=== PATIENT | female | born 1940 | race Caucasian/White ===

== ENCOUNTER → 2016-05-22 | Outpatient (CLI) | payer MEDICARE, BC | LOC: LAB 10:49 | DX: I10 Essential (primary) hypertension (principal) ==

== ENCOUNTER → 2016-05-30 | Outpatient (CLI) | payer MEDICARE, BC | LOC: LAB 10:40 | DX: Z00.00 Encounter for general adult medical examination without abnormal findings (principal); I10 Essential (primary) hypertension; J44.9 Chronic obstructive pulmonary disease, unspecified; R92.0 Mammographic microcalcification found on diagnostic imaging of breast; Z12.12 Encounter for screening for malignant neoplasm of rectum ==

== ENCOUNTER → 2017-05-14 | Outpatient (CLI) | payer MEDICARE, BC ==
[2017-05-15 16:16] LABS: ALBUMIN 3.8 g/dL (3.5-5.0); BUN/CREATININE RATIO 11.1 (6.0-26.0); CALCIUM 9.3 mg/dL (8.4-10.2); TOTAL BILIRUBIN 0.9 mg/dL (0.2-1.3)
== END ==
LOC: LAB 08:18
PROVIDERS: Family Medicine
DX: I10 Essential (primary) hypertension (principal); Z13.6 Encounter for screening for cardiovascular disorders; Z88.8 Allergy status to other drugs, medicaments and biological substances; Z91.018 Allergy to other foods

== ENCOUNTER → 2017-07-08 | Outpatient (CLI) | payer MEDICARE, BC ==
[~2017-07-08] VITALS: Ht 157.5 cm; Wt 71.8 kg
[~2017-07-08] MED LIST: ATROVENT HFA IH; LISINOPRIL20 MG PO; LOW DOSE ASPIRI81 M1 PO; METOPROLOL SUCC50 M1 PO; RT SPIRIVA INH18 MCG IH
[2017-07-08 12:05] VITALS: BP 177/91
[2017-07-08 12:07] LABS: BUN/CREATININE RATIO 10.6 (6.0-26.0); POTASSIUM 3.8 mmol/L (3.6-5.0)
[2017-07-08 12:17] LABS: URINE APPEARANCE CLEAR; URINE BILIRUBIN NEGATIVE (NEGATIVE); URINE BLOOD NEGATIVE (NEGATIVE); URINE COLOR YELLOW; URINE GLUCOSE NEGATIVE (NEGATIVE); URINE KETONE NEGATIVE (NEGATIVE); URINE LEUKOCYTE ESTERASE TRACE (NEGATIVE); URINE NITRATE NEGATIVE (NEGATIVE); URINE PROTEIN(semi-quant) NEGATIVE (NEGATIVE); URINE UROBILINOGEN NORMAL (NORMAL)
== END ==
LOC: AMSURD 11:31 → RAD 11:31
PROVIDERS: Family Medicine
DX: I10 Essential (primary) hypertension (principal); J44.9 Chronic obstructive pulmonary disease, unspecified; Z72.0 Tobacco use; R60.0 Localized edema; R09.89 Other specified symptoms and signs involving the circulatory and respiratory systems; R91.8 Other nonspecific abnormal finding of lung field

== ENCOUNTER → 2017-07-12 | Outpatient (CLI) | payer MEDICARE, BC ==
[2017-07-08 12:05] VITALS: BP 177/91
== END ==
LOC: RAD 09:46
DX: I28.8 Other diseases of pulmonary vessels (principal); R91.8 Other nonspecific abnormal finding of lung field; Z88.8 Allergy status to other drugs, medicaments and biological substances; Z91.041 Radiographic dye allergy status
CPT/HCPCS: Q9967

== ENCOUNTER → 2017-07-15 | Outpatient (CLI) | payer MEDICARE, BC ==
[2017-07-08 12:05] VITALS: BP 177/91
[2017-07-15 11:16] LABS: BUN/CREATININE RATIO 11.7 (6.0-26.0); CALCIUM 9.1 mg/dL (8.4-10.2); POTASSIUM 4.7 mmol/L (3.6-5.0)
== END ==
LOC: LAB 10:20
PROVIDERS: Family Medicine
DX: R60.0 Localized edema (principal)

== ENCOUNTER 2018-05-20 13:41 | Emergency (ER) | payer MEDICARE, BC ==
[~2018-05-20] VITALS: Ht 157.5 cm; Wt 75.9 kg
[2018-05-20 14:08] LABS: EOS % 0.4 % (1.0-5.0); HEMOGLOBIN 15.8 g/dL (12.5-16.0); LYMPH# 1.9 (1.50-4.00); MEAN CELL VOLUME 89 fl (78-100); MEAN CORPUSCULAR HEMOGLOBIN 28 pg (27-31); MEAN CORPUSCULAR HGB CONC 32 g/dL (33-37); MEAN PLATELET VOLUME 9.2 fl (7.4-10.4); MONO # 0.7 (0.20-0.80); NEU # 5.7 (1.40-6.50); PLATELET COUNT 245 K/mm3 (130-400); RED BLOOD COUNT 5.59 M/mm3 (4.10-5.30); RED CELL DISTRIBUTION WIDTH 14.9 % (11.5-14.5); WHITE BLOOD COUNT 8.4 K/mm3 (4.8-10.8)
[2018-05-20 14:25] LABS: ALBUMIN 3.7 g/dL (3.5-5.0); CALCIUM 8.7 mg/dL (8.4-10.2); POTASSIUM 4.2 mmol/L (3.6-5.0); TOTAL BILIRUBIN 0.7 mg/dL (0.2-1.3); TOTAL PROTEIN 6.6 g/dL (6.3-8.2)
[2018-05-20 14:39] LABS: TROPONIN-I < 0.03 ng/mL (0.00-0.06)
[2018-05-20 16:05] LABS: URINE APPEARANCE CLEAR; URINE BILIRUBIN NEGATIVE (NEGATIVE); URINE BLOOD TRACE (NEGATIVE); URINE COLOR YELLOW; URINE GLUCOSE NEGATIVE (NEGATIVE); URINE KETONE NEGATIVE (NEGATIVE); URINE LEUKOCYTE ESTERASE NEGATIVE (NEGATIVE); URINE NITRATE NEGATIVE (NEGATIVE); URINE PROTEIN(semi-quant) TRACE mg/dL (NEGATIVE); URINE UROBILINOGEN NORMAL (NORMAL)
[2018-05-20 16:06] LABS: URINE WBC 0-1 /hpf (0-3)
[2018-05-20 16:48] VITALS: BP 164/76
== END 2018-05-20 16:50 | disposition short-term general hospital (02) ==
LOC: ED 13:41
PROVIDERS: Nurse Practitioner Family
DX: I11.0 Hypertensive heart disease with heart failure (principal); I50.9 Heart failure, unspecified; I27.20 Pulmonary hypertension, unspecified; J44.9 Chronic obstructive pulmonary disease, unspecified; R09.02 Hypoxemia; E87.1 Hypo-osmolality and hyponatremia; I34.0 Nonrheumatic mitral (valve) insufficiency; M47.814 Spondylosis without myelopathy or radiculopathy, thoracic region; G89.29 Other chronic pain; F17.210 Nicotine dependence, cigarettes, uncomplicated; Z88.8 Allergy status to other drugs, medicaments and biological substances
CPT/HCPCS: J1940; J7030

== ENCOUNTER → 2018-06-03 | Outpatient (CLI) | payer MEDICARE, BC ==
[2018-05-20 16:48] VITALS: BP 164/76
[2018-06-03 08:46] LABS: ALT/SGPT 22 U/L (9-52); AST-SGOT 18 U/L (14-36); CALCIUM 8.9 mg/dL (8.4-10.2); GLUCOSE 90 mg/dL (65-105); POTASSIUM 4.1 mmol/L (3.6-5.0); SODIUM 132 mmol/L (137-145); TOTAL BILIRUBIN 0.8 mg/dL (0.2-1.3); TOTAL PROTEIN 5.4 g/dL (6.3-8.2)
[2018-06-03 09:32] LABS: CARBON DIOXIDE > 40 mmol/L (22-30)
== END ==
LOC: LAB 08:17
PROVIDERS: Family Medicine
DX: I11.0 Hypertensive heart disease with heart failure (principal); I50.9 Heart failure, unspecified; I05.2 Rheumatic mitral stenosis with insufficiency

== ENCOUNTER → 2018-06-25 | Outpatient (CLI) | payer MEDICARE, BC | LOC: LAB 14:54 | PROVIDERS: Family Medicine | DX: I50.9 Heart failure, unspecified (principal) ==

== ENCOUNTER 2018-08-29 10:00 | Outpatient (RCR) | payer MEDICARE, BC | END 2018-09-03 | disposition still patient (30) | LOC: CARDREHAB | DX: I09.81 Rheumatic heart failure (principal); I50.9 Heart failure, unspecified; I27.0 Primary pulmonary hypertension ==

== ENCOUNTER 2018-10-29 10:00 | Outpatient (RCR) | payer MEDICARE, BC | END 2018-10-29 11:00 | disposition home or self-care (01) | LOC: CARDREHAB 10:00 | DX: I27.89 Other specified pulmonary heart diseases (principal); I27.0 Primary pulmonary hypertension; I05.2 Rheumatic mitral stenosis with insufficiency; I50.9 Heart failure, unspecified; J44.9 Chronic obstructive pulmonary disease, unspecified ==

== ENCOUNTER 2019-01-22 13:27 | Inpatient (IN) | payer MEDICARE, BC ==
[~2019-01-22] VITALS: Ht 157.5 cm; Wt 78.6 kg
[~2019-01-22 13:27] MED LIST changes: +LISINOPRIL10 MG PO; -LISINOPRIL20 MG PO; -METOPROLOL SUCC50 M1 PO; +TOPROL-XL200 MG PO
[2019-01-22] MEDS ORDERED: ZETIA10 M1 PO (17:09)
[2019-01-22] MEDS ORDERED: ASPIRIN E.C. 8181 MG PO (17:09)
[2019-01-22] MEDS ORDERED: NORCO 325 MG-51 TA1 PO (17:10)
[2019-01-22] MEDS ORDERED: LASIX40 M1 PO (17:10)
[2019-01-22] MEDS ORDERED: POTASSIUM CH2 MEQ/ML PO (17:14)
[2019-01-22 17:22] VITALS: BP 155/75
[2019-01-22 17:22] LABS: HEMATOCRIT 37.2 % (37.0-47.0); MEAN PLATELET VOLUME 9.9 fl (7.4-10.4); RED BLOOD COUNT 4.07 M/mm3 (4.10-5.30); RED CELL DISTRIBUTION WIDTH 13.7 % (11.5-14.5); WHITE BLOOD COUNT 11.9 K/mm3 (4.8-10.8)
[2019-01-22 17:32] LABS: ALBUMIN 3.2 g/dL (3.4-4.8); POTASSIUM 5.1 mmol/L (3.5-5.1)
[2019-01-22 17:34] LABS: CALCIUM 9.2 mg/dL (8.3-10.5)
[2019-01-22 17:35] LABS: TOTAL PROTEIN 5.9 g/dL (6.2-8.1)
[2019-01-22 17:37] LABS: TOTAL BILIRUBIN 0.8 mg/dL (0.2-1.2)
[2019-01-22] MEDS ORDERED: AMIODARONE200 MG PO (18:13)
[2019-01-22] MEDS ORDERED: LASIX80 M1 PO (18:15)
[2019-01-22] MEDS ORDERED: COUMADIN 2MG2 MG/TAB PO (18:16)
[2019-01-22 22:58] LABS: URINE APPEARANCE CLEAR; URINE BILIRUBIN NEGATIVE (NEGATIVE); URINE BLOOD NEGATIVE (NEGATIVE); URINE COLOR YELLOW; URINE GLUCOSE NEGATIVE (NEGATIVE); URINE KETONE NEGATIVE (NEGATIVE); URINE LEUKOCYTE ESTERASE NEGATIVE (NEGATIVE); URINE NITRATE NEGATIVE (NEGATIVE); URINE PROTEIN(semi-quant) TRACE mg/dL (NEGATIVE); URINE UROBILINOGEN NORMAL (NORMAL); URINE WBC 0-1 /hpf (0-3)
[2019-01-23 06:29] VITALS: BP 111/67
[2019-01-23 19:10] VITALS: BP 127/81
[2019-01-23 20:06] LABS: PROTHROMBIN TIME 25.6 SECONDS (9.0-12.0)
[2019-01-24 06:24] VITALS: BP 113/85
[2019-01-24 11:29] LABS: CALCIUM 8.5 mg/dL (8.3-10.5)
[2019-01-24 18:59] VITALS: BP 132/78
[2019-01-25 06:25] VITALS: BP 110/66
[2019-01-25 17:55] VITALS: BP 150/74
[2019-01-26 06:23] LABS: HEMATOCRIT 39.1 % (37.0-47.0); HEMOGLOBIN 12.3 g/dL (12.5-16.0); MEAN CELL VOLUME 93 fl (78-100); MEAN CORPUSCULAR HEMOGLOBIN 29 pg (27-31); MEAN CORPUSCULAR HGB CONC 32 g/dL (33-37); MEAN PLATELET VOLUME 9.1 fl (7.4-10.4); PLATELET COUNT 388 K/mm3 (130-400); RED BLOOD COUNT 4.19 M/mm3 (4.10-5.30); RED CELL DISTRIBUTION WIDTH 13.4 % (11.5-14.5); WHITE BLOOD COUNT 12.9 K/mm3 (4.8-10.8)
[2019-01-26 06:32] VITALS: BP 120/71
[2019-01-26 06:50] LABS: POTASSIUM 4.5 mmol/L (3.5-5.1)
[2019-01-26 06:52] LABS: CALCIUM 8.8 mg/dL (8.3-10.5)
[2019-01-26 07:05] LABS: PROTHROMBIN TIME 24.2 SECONDS (9.0-12.0)
[2019-01-26 07:27] LABS: LYMPHOCYTE 11 % (20-51); MONOCYTE 5 % (3-10); NEUTROPHILS 83 % (42-75)
[2019-01-26 13:23] VITALS: BP 135/82
[2019-01-26] MEDS ORDERED: DILTIAZEM HCL30 M1 PO (13:39)
[2019-01-26] MEDS ORDERED: ALDACTONE 25MG25 MG PO (13:39)
[2019-01-26] MEDS ORDERED: LASIX80 M1 PO (13:40)
== END 2019-01-26 14:58 | disposition short-term general hospital (02) | DRG 948 ==
LOC: MED/SURG 13:27
PROVIDERS: Family Medicine; ADMIT Family Medicine
DX: R53.81 Other malaise (principal); E87.1 Hypo-osmolality and hyponatremia; J44.9 Chronic obstructive pulmonary disease, unspecified; I25.10 Atherosclerotic heart disease of native coronary artery without angina pectoris; I73.9 Peripheral vascular disease, unspecified; I48.0 Paroxysmal atrial fibrillation; M19.90 Unspecified osteoarthritis, unspecified site; D64.9 Anemia, unspecified; Z79.82 Long term (current) use of aspirin; Z95.2 Presence of prosthetic heart valve; Z95.1 Presence of aortocoronary bypass graft
CPT/HCPCS: J1940

== ENCOUNTER 2019-01-29 13:19 | Inpatient (IN) | payer MEDICARE, BC ==
[~2019-01-29] VITALS: Ht 157.5 cm; Wt 72.8 kg
[~2019-01-29 13:19] MED LIST changes: +ALDACTONE 25MG25 MG PO; +AMIODARONE200 MG PO; +ASPIRIN E.C. 8181 MG PO; +COUMADIN 2MG2 MG/TAB PO; +DILTIAZEM HCL30 M1 PO; +LASIX40 M1 PO; +LASIX80 M1 PO; +NORCO 325 MG-51 TA1 PO; +POTASSIUM CH2 MEQ/ML PO; +ZETIA10 M1 PO
[2019-01-29] MEDS ORDERED: DILTIAZEM HCL60 MG PO (16:34)
[2019-01-29] MEDS ORDERED: TORSEMIDE20 M1 PO (16:37)
[2019-01-29] MEDS ORDERED: K-TAB20 MEQ PO (17:55)
[2019-01-29 18:00] VITALS: BP 127/83
[2019-01-29] MEDS ORDERED: WARFARIN SOD2 MG PO (18:03)
[2019-01-29 19:18] VITALS: BP 127/83
[2019-01-29 19:28] VITALS: BP 127/83
[2019-01-30 06:23] VITALS: BP 121/81
[2019-01-30 07:00] LABS: CALCIUM 8.6 mg/dL (8.3-10.5)
[2019-01-30 07:19] LABS: PROTHROMBIN TIME 26.2 SECONDS (9.0-12.0)
[2019-01-30 08:23] VITALS: BP 114/64
[2019-01-30 09:25] LABS: EOS # 0.2 (0.04-0.40); EOS % 2.2 % (1.0-5.0); HEMATOCRIT 41.1 % (37.0-47.0); HEMOGLOBIN 12.9 g/dL (12.5-16.0); LYMPH# 1.9 (1.50-4.00); MEAN CELL VOLUME 93 fl (78-100); MEAN CORPUSCULAR HEMOGLOBIN 29 pg (27-31); MEAN CORPUSCULAR HGB CONC 31 g/dL (33-37); MEAN PLATELET VOLUME 9.2 fl (7.4-10.4); MONO # 0.8 (0.20-0.80); NEU # 7.5 (1.40-6.50); PLATELET COUNT 389 K/mm3 (130-400); RED BLOOD COUNT 4.42 M/mm3 (4.10-5.30); RED CELL DISTRIBUTION WIDTH 13.7 % (11.5-14.5); WHITE BLOOD COUNT 10.5 K/mm3 (4.8-10.8)
[2019-01-30 15:09] LABS: URINE APPEARANCE CLEAR; URINE BILIRUBIN NEGATIVE (NEGATIVE); URINE BLOOD TRACE (NEGATIVE); URINE COLOR YELLOE; URINE GLUCOSE NEGATIVE (NEGATIVE); URINE KETONE NEGATIVE (NEGATIVE); URINE LEUKOCYTE ESTERASE NEGATIVE (NEGATIVE); URINE NITRATE NEGATIVE (NEGATIVE); URINE PROTEIN(semi-quant) TRACE mg/dL (NEGATIVE); URINE UROBILINOGEN NORMAL (NORMAL); URINE WBC 0-1 /hpf (0-3)
[2019-01-30 18:09] VITALS: BP 96/65
[2019-01-31 06:21] VITALS: BP 134/76
[2019-01-31 09:31] LABS: PROTHROMBIN TIME 48.4 SECONDS (9.0-12.0)
[2019-01-31 10:27] VITALS: BP 126/77
[2019-01-31 11:59] LABS: CALCIUM 8.9 mg/dL (8.3-10.5)
[2019-01-31 13:49] VITALS: BP 102/46
[2019-01-31 17:11] VITALS: BP 129/68
[2019-01-31 18:42] VITALS: BP 124/77
[2019-02-01 06:14] VITALS: BP 109/68
[2019-02-01 09:02] LABS: PROTHROMBIN TIME 65.8 SECONDS (9.0-12.0)
[2019-02-01 10:58] VITALS: BP 128/74
[2019-02-01 14:14] VITALS: BP 120/62
[2019-02-01 18:53] VITALS: BP 114/66
[2019-02-02 06:19] VITALS: BP 91/64
[2019-02-02 07:34] LABS: PROTHROMBIN TIME 49.1 SECONDS (9.0-12.0)
[2019-02-02 07:49] VITALS: BP 131/70
[2019-02-02 09:39] LABS: HEMOGLOBIN 11.8 g/dL (12.5-16.0); MEAN CELL VOLUME 93 fl (78-100); MEAN CORPUSCULAR HEMOGLOBIN 29 pg (27-31); MEAN CORPUSCULAR HGB CONC 31 g/dL (33-37); MEAN PLATELET VOLUME 9.6 fl (7.4-10.4); PLATELET COUNT 283 K/mm3 (130-400); RED BLOOD COUNT 4.11 M/mm3 (4.10-5.30); RED CELL DISTRIBUTION WIDTH 13.7 % (11.5-14.5); WHITE BLOOD COUNT 12.9 K/mm3 (4.8-10.8)
[2019-02-02 09:40] LABS: POTASSIUM 3.9 mmol/L (3.5-5.1)
[2019-02-02 09:41] LABS: CALCIUM 8.9 mg/dL (8.3-10.5)
[2019-02-02 11:16] LABS: LYMPHOCYTE 11 % (20-51); MONOCYTE 10 % (3-10); NEUTROPHILS 79 % (42-75)
[2019-02-02 18:00] VITALS: BP 98/59
[2019-02-03 06:24] VITALS: BP 112/61
[2019-02-03 07:23] LABS: EOS # 0.1 (0.04-0.40); EOS % 0.8 % (1.0-5.0); HEMATOCRIT 36.8 % (37.0-47.0); HEMOGLOBIN 11.5 g/dL (12.5-16.0); LYMPH# 2.4 (1.50-4.00); MEAN CELL VOLUME 92 fl (78-100); MEAN CORPUSCULAR HEMOGLOBIN 29 pg (27-31); MEAN CORPUSCULAR HGB CONC 31 g/dL (33-37); MEAN PLATELET VOLUME 9.9 fl (7.4-10.4); MONO # 1.2 (0.20-0.80); PLATELET COUNT 282 K/mm3 (130-400); RED CELL DISTRIBUTION WIDTH 13.8 % (11.5-14.5); WHITE BLOOD COUNT 15.3 K/mm3 (4.8-10.8)
[2019-02-03 07:24] LABS: NEU # 11.5 (1.40-6.50)
[2019-02-03 07:25] LABS: PROTHROMBIN TIME 37.4 SECONDS (9.0-12.0)
[2019-02-03 15:44] LABS: POTASSIUM 3.9 mmol/L (3.5-5.1)
[2019-02-03 15:45] LABS: CALCIUM 8.6 mg/dL (8.3-10.5)
[2019-02-03 15:51] VITALS: BP 96/61
[2019-02-03 18:55] VITALS: BP 112/64
[2019-02-04 06:11] LABS: HEMATOCRIT 36.7 % (37.0-47.0); HEMOGLOBIN 11.6 g/dL (12.5-16.0); MEAN CELL VOLUME 92 fl (78-100); MEAN CORPUSCULAR HEMOGLOBIN 29 pg (27-31); MEAN CORPUSCULAR HGB CONC 32 g/dL (33-37); MEAN PLATELET VOLUME 9.5 fl (7.4-10.4); PLATELET COUNT 261 K/mm3 (130-400); RED BLOOD COUNT 3.99 M/mm3 (4.10-5.30); RED CELL DISTRIBUTION WIDTH 13.6 % (11.5-14.5); WHITE BLOOD COUNT 13.3 K/mm3 (4.8-10.8)
[2019-02-04 06:19] LABS: POTASSIUM 3.9 mmol/L (3.5-5.1)
[2019-02-04 06:20] LABS: CALCIUM 8.8 mg/dL (8.3-10.5)
[2019-02-04 06:27] VITALS: BP 115/63
[2019-02-04 06:27] LABS: PROTHROMBIN TIME 11.7 SECONDS (9.0-12.0)
[2019-02-04 06:32] LABS: BAND 2 % (0-10); LYMPHOCYTE 7 % (20-51); NEUTROPHILS 82 % (42-75)
[2019-02-04 06:33] LABS: HYPOCHROMIA 1+; MONOCYTE 5 % (3-10); OVALOCYTES 1+
== END 2019-02-04 12:38 | disposition short-term general hospital (02) | DRG 947 ==
LOC: MED/SURG 13:19
PROVIDERS: Family Medicine; Nurse Practitioner Primary Care; ADMIT Nurse Practitioner Family
DX: R53.81 Other malaise (principal); J18.8 Other pneumonia, unspecified organism; J91.8 Pleural effusion in other conditions classified elsewhere; J44.9 Chronic obstructive pulmonary disease, unspecified; Z99.81 Dependence on supplemental oxygen; I48.0 Paroxysmal atrial fibrillation; Z79.01 Long term (current) use of anticoagulants; I50.9 Heart failure, unspecified; I11.0 Hypertensive heart disease with heart failure; R06.03 Acute respiratory distress
CPT/HCPCS: J1940; J2930

== ENCOUNTER 2019-02-16 15:13 | Inpatient (IN) | payer MEDICARE, BC ==
[~2019-02-16] VITALS: Ht 157.5 cm; Wt 64.5 kg
[~2019-02-16 15:13] MED LIST changes: +DILTIAZEM HCL60 MG PO; +K-TAB20 MEQ PO; +TORSEMIDE20 M1 PO; +WARFARIN SOD2 MG PO
[2019-02-16 16:42] VITALS: BP 143/87
[2019-02-16] MEDS ORDERED: LASIX40 M1 PO (17:17)
[2019-02-16] MEDS ORDERED: CARDIZEM CD 24240 MG PO (17:17)
[2019-02-16] MEDS ORDERED: COLCRYS0.6 MG PO (17:18)
[2019-02-16] MEDS ORDERED: PROTONIX TR40 M1 PO (17:58)
[2019-02-16] MEDS ORDERED: TOPROL XL100 MG PO (18:02)
[2019-02-16 18:22] VITALS: BP 143/87
[2019-02-16] MEDS ORDERED: COUMADIN 5MG5 MG/TAB PO (20:08)
[2019-02-16 20:43] LABS: HEMATOCRIT 38.1 % (37.0-47.0); HEMOGLOBIN 12.2 g/dL (12.5-16.0); MEAN CELL VOLUME 87 fl (78-100); MEAN CORPUSCULAR HEMOGLOBIN 28 pg (27-31); MEAN CORPUSCULAR HGB CONC 32 g/dL (33-37); MEAN PLATELET VOLUME 11.2 fl (7.4-10.4); PLATELET COUNT 155 K/mm3 (130-400); RED BLOOD COUNT 4.38 M/mm3 (4.10-5.30); RED CELL DISTRIBUTION WIDTH 13.9 % (11.5-14.5); WHITE BLOOD COUNT 9.9 K/mm3 (4.8-10.8)
[2019-02-16 20:53] LABS: ALBUMIN 2.6 g/dL (3.4-4.8); POTASSIUM 3.3 mmol/L (3.5-5.1)
[2019-02-16 20:56] LABS: TOTAL PROTEIN 4.8 g/dL (6.2-8.1)
[2019-02-16 20:58] LABS: TOTAL BILIRUBIN 0.4 mg/dL (0.2-1.2)
[2019-02-16 21:31] LABS: BAND 2 % (0-10); LYMPHOCYTE 10 % (20-51); MONOCYTE 5 % (3-10); NEUTROPHILS 80 % (42-75)
[2019-02-17 05:53] VITALS: BP 95/62
[2019-02-17 08:35] LABS: PROTHROMBIN TIME 26.4 SECONDS (9.0-12.0)
[2019-02-17 15:39] LABS: PROTHROMBIN TIME 24.1 SECONDS (9.0-12.0)
[2019-02-17 19:20] VITALS: BP 95/61
[2019-02-18 06:17] VITALS: BP 104/66
[2019-02-18 18:34] VITALS: BP 124/61
[2019-02-18 20:40] VITALS: BP 109/68
[2019-02-19 06:01] VITALS: BP 97/48
[2019-02-19 09:54] LABS: HEMATOCRIT 37.9 % (37.0-47.0); HEMOGLOBIN 12.2 g/dL (12.5-16.0); MEAN CELL VOLUME 87 fl (78-100); MEAN CORPUSCULAR HEMOGLOBIN 28 pg (27-31); MEAN CORPUSCULAR HGB CONC 32 g/dL (33-37); MEAN PLATELET VOLUME 11.5 fl (7.4-10.4); PLATELET COUNT 229 K/mm3 (130-400); RED BLOOD COUNT 4.34 M/mm3 (4.10-5.30); RED CELL DISTRIBUTION WIDTH 14.1 % (11.5-14.5); WHITE BLOOD COUNT 9.6 K/mm3 (4.8-10.8)
[2019-02-19 09:55] LABS: CALCIUM 8.2 mg/dL (8.3-10.5)
[2019-02-19 10:17] LABS: POTASSIUM 2.9 mmol/L (3.5-5.1)
[2019-02-19 10:23] LABS: LYMPHOCYTE 13 % (20-51); MONOCYTE 6 % (3-10); NEUTROPHILS 79 % (42-75)
[2019-02-19 10:36] LABS: PROTHROMBIN TIME 41.6 SECONDS (9.0-12.0)
[2019-02-19 18:31] VITALS: BP 111/66
[2019-02-20 05:43] VITALS: BP 95/56
[2019-02-20 07:22] LABS: PROTHROMBIN TIME 35.7 SECONDS (9.0-12.0)
[2019-02-20 07:30] LABS: CALCIUM 7.9 mg/dL (8.3-10.5)
[2019-02-20 19:08] VITALS: BP 95/60
[2019-02-21 06:05] VITALS: BP 91/51
[2019-02-21 08:11] LABS: POTASSIUM 3.3 mmol/L (3.5-5.1)
[2019-02-21 08:13] LABS: CALCIUM 8.2 mg/dL (8.3-10.5)
[2019-02-21 08:24] LABS: PROTHROMBIN TIME 29.3 SECONDS (9.0-12.0)
[2019-02-21 18:09] VITALS: BP 103/68
[2019-02-22 06:19] VITALS: BP 90/58
[2019-02-22 14:59] VITALS: BP 81/53
[2019-02-22 15:50] LABS: POTASSIUM 3.5 mmol/L (3.5-5.1)
[2019-02-22 16:28] VITALS: BP 93/56
[2019-02-22 18:23] VITALS: BP 103/68
[2019-02-23 05:50] VITALS: BP 95/59
[2019-02-23 07:20] LABS: POTASSIUM 3.3 mmol/L (3.5-5.1)
[2019-02-23 07:21] LABS: CALCIUM 7.7 mg/dL (8.3-10.5)
[2019-02-23 07:29] LABS: PROTHROMBIN TIME 20.2 SECONDS (9.0-12.0)
[2019-02-23 15:00] VITALS: BP 86/50
[2019-02-23 15:10] VITALS: BP 82/44
[2019-02-23 18:48] VITALS: BP 90/59
[2019-02-24 05:22] VITALS: BP 114/71
[2019-02-24 18:00] VITALS: BP 116/71
[2019-02-25 06:09] VITALS: BP 106/66
[2019-02-25 13:37] LABS: POTASSIUM 3.7 mmol/L (3.5-5.1); PROTHROMBIN TIME 18.8 SECONDS (9.0-12.0)
[2019-02-25 13:38] LABS: CALCIUM 7.8 mg/dL (8.3-10.5)
[2019-02-25 18:00] VITALS: BP 89/43
[2019-02-26 06:02] VITALS: BP 93/57
[2019-02-26] MEDS ORDERED: COUMADIN 2MG2 MG/TAB PO (08:38)
[2019-02-26] MEDS ORDERED: CARDIZEM CD180 M1 PO (08:40)
[2019-02-26] MEDS ORDERED: LASIX40 M1 PO (08:42)
[2019-02-26] MEDS ORDERED: IMODIUM 2MG CAPS2 MG PO (08:42)
[2019-02-26] MEDS ORDERED: TOPROL XL 25MG25 MG PO (08:43)
[2019-03-03] MEDS ORDERED: METOPROLOL SUCC25 M1 PO (11:53)
== END 2019-02-26 10:03 | disposition home health service (06) | DRG 948 ==
LOC: MED/SURG 15:13
PROVIDERS: Family Medicine; ADMIT Nurse Practitioner Primary Care
DX: R53.81 Other malaise (principal); I97.130 Postprocedural heart failure following cardiac surgery; Z86.711 Personal history of pulmonary embolism; Z79.01 Long term (current) use of anticoagulants; Z99.81 Dependence on supplemental oxygen; Z95.1 Presence of aortocoronary bypass graft; I48.91 Unspecified atrial fibrillation; J44.9 Chronic obstructive pulmonary disease, unspecified; R19.7 Diarrhea, unspecified; I11.0 Hypertensive heart disease with heart failure; I50.9 Heart failure, unspecified; K21.9 Gastro-esophageal reflux disease without esophagitis; I25.10 Atherosclerotic heart disease of native coronary artery without angina pectoris

== ENCOUNTER → 2019-02-27 | Outpatient (CLI) | payer MEDICARE, BC ==
[2019-02-26 06:02] VITALS: BP 93/57
[~2019-02-27] MED LIST changes: +CARDIZEM CD 24240 MG PO; +CARDIZEM CD180 M1 PO; +COLCRYS0.6 MG PO; +COUMADIN 5MG5 MG/TAB PO; +IMODIUM 2MG CAPS2 MG PO; +METOPROLOL SUCC25 M1 PO; +PROTONIX TR40 M1 PO; +TOPROL XL 25MG25 MG PO; +TOPROL XL100 MG PO
[2019-02-27 11:31] LABS: PROTHROMBIN TIME 22.5 SECONDS (9.0-12.0)
== END ==
LOC: LAB 09:53
PROVIDERS: Family Medicine
DX: I26.99 Other pulmonary embolism without acute cor pulmonale (principal)

== ENCOUNTER 2019-03-02 14:00 | Emergency (ER) | payer MEDICARE, BC ==
[~2019-03-02] VITALS: Wt 68.6 kg
[~2019-03-02 14:00] MED LIST changes: -METOPROLOL SUCC25 M1 PO
[2019-03-02 18:30] VITALS: BP 133/64
--- NOTE | 2019-03-03 11:46 | NUR ---
Provider reqested information on [facility], message left w/ Elis LEAL, on 03-02-19, who calls back today w/ [facility] phone # [phone] stating they are currently down 2 providers and appointments may be out for some time. Elisha Costa RN DON of [facility] with which pt is currently in an episode of HH is notified and will f/u w/ pt and her PCP.
[2019-03-03] MEDS ORDERED: METOPROLOL SUCC25 M1 PO (11:53)
== END 2019-03-02 18:25 | disposition home or self-care (01) ==
LOC: ED 14:00
DX: I95.1 Orthostatic hypotension (principal); E87.1 Hypo-osmolality and hyponatremia; I48.91 Unspecified atrial fibrillation; I50.9 Heart failure, unspecified; Z95.2 Presence of prosthetic heart valve; Z79.01 Long term (current) use of anticoagulants
CPT/HCPCS: J7030

== ENCOUNTER → 2019-03-02 | Outpatient (CLI) | payer MEDICARE, BC ==
[2019-03-02 11:23] LABS: HEMATOCRIT 36.4 % (37.0-47.0); HEMOGLOBIN 12.2 g/dL (12.5-16.0); MEAN CELL VOLUME 84 fl (78-100); MEAN CORPUSCULAR HEMOGLOBIN 28 pg (27-31); MEAN CORPUSCULAR HGB CONC 34 g/dL (33-37); MEAN PLATELET VOLUME 10.4 fl (7.4-10.4); PLATELET COUNT 215 K/mm3 (130-400); RED BLOOD COUNT 4.35 M/mm3 (4.10-5.30); RED CELL DISTRIBUTION WIDTH 14.4 % (11.5-14.5)
[2019-03-02 11:36] LABS: POTASSIUM 3.9 mmol/L (3.5-5.1)
[2019-03-02 11:37] LABS: BAND 3 % (0-10); CALCIUM 7.5 mg/dL (8.3-10.5); LYMPHOCYTE 20 % (20-51); MONOCYTE 11 % (3-10); NEUTROPHILS 64 % (42-75)
[2019-03-02 13:23] VITALS: BP 143/88
--- NOTE | 2019-03-02 13:50 | NUR ---
ORTHOSTATIC BP TAKEN. DIZZY AT ALL TIMES. RESP LABORED AND SHALLOW EVEN AT REST. WHILE STANDING FOR BP, PATIENT REPORTED FEELING WEAK; INCREASED RESP RATE NOTED. FOUL SMELLING LOOSE STOOL. MINIMAL ASSIST WITH ADL'S AND AMBULATION. APPEARS TIRED. SKIN A YELLOW HUE WITH PALLOR TO NOSE/MOUTH TRIANGLE. DISCUSS PATIENT CONDITION WITH DR ORTIZ, WHO ORDERS FOR PATIENT TO BE EVALUATED IN THE ER.
[2019-03-02 14:08] VITALS: BP 143/88
--- NOTE | 2019-03-02 14:18 | NUR ---
MICAH, , NOTIFIED OF TRANSITION TO ER.
== END ==
LOC: AMSURD 11:12 → LAB 11:12
PROVIDERS: Family Medicine
DX: I48.91 Unspecified atrial fibrillation (principal); I95.9 Hypotension, unspecified

== ENCOUNTER → 2019-03-13 | Outpatient (CLI) | payer MEDICARE, BC ==
[2019-03-02 18:30] VITALS: BP 133/64
[~2019-03-13] MED LIST changes: +METOPROLOL SUCC25 M1 PO
[2019-03-13 15:25] LABS: POTASSIUM 3.9 mmol/L (3.5-5.1)
[2019-03-13 15:26] LABS: CALCIUM 8.1 mg/dL (8.3-10.5)
== END ==
LOC: LAB 10:50
PROVIDERS: Family Medicine
DX: I10 Essential (primary) hypertension (principal); R19.7 Diarrhea, unspecified

== ENCOUNTER → 2019-04-09 | Outpatient (CLI) | payer MEDICARE, BC ==
[2019-04-09 14:33] LABS: CALCIUM 8.4 mg/dL (8.3-10.5)
== END ==
LOC: LAB 14:19
PROVIDERS: Family Medicine
DX: I50.9 Heart failure, unspecified (principal)

== ENCOUNTER → 2019-04-16 | Outpatient (CLI) | payer MEDICARE, BC ==
[2019-04-16 10:55] LABS: CALCIUM 8.8 mg/dL (8.3-10.5)
== END ==
LOC: LAB 10:31
PROVIDERS: Family Medicine
DX: I50.9 Heart failure, unspecified (principal)

== ENCOUNTER 2019-04-17 13:56 | Emergency (ER) | payer MEDICARE, BC ==
[~2019-04-17] VITALS: Ht 160 cm; Wt 60.0 kg
[2019-04-17 15:11] LABS: EOS % 0.4 % (1.0-5.0); HEMATOCRIT 41.1 % (37.0-47.0); HEMOGLOBIN 13.1 g/dL (12.5-16.0); LYMPH# 2.8 (1.50-4.00); MEAN CELL VOLUME 85 fl (78-100); MEAN CORPUSCULAR HEMOGLOBIN 27 pg (27-31); MEAN CORPUSCULAR HGB CONC 32 g/dL (33-37); NEU # 5.3 (1.40-6.50); PLATELET COUNT 354 K/mm3 (130-400); RED BLOOD COUNT 4.83 M/mm3 (4.10-5.30); WHITE BLOOD COUNT 9.1 K/mm3 (4.8-10.8)
[2019-04-17 15:14] LABS: RED CELL DISTRIBUTION WIDTH 18.3 % (11.5-14.5)
[2019-04-17 15:21] LABS: ALBUMIN 2.9 g/dL (3.4-4.8); POTASSIUM 3.2 mmol/L (3.5-5.1); SODIUM 132 mmol/L (136-145)
[2019-04-17 15:23] LABS: CALCIUM 9.1 mg/dL (8.3-10.5)
[2019-04-17 15:24] LABS: GLUCOSE 110 mg/dL (65-105); TOTAL PROTEIN 6.5 g/dL (6.2-8.1)
[2019-04-17 15:25] LABS: CARBON DIOXIDE 37 mmol/L (23-31)
[2019-04-17 15:26] LABS: TOTAL BILIRUBIN 0.5 mg/dL (0.2-1.2)
[2019-04-17 15:29] LABS: AST-SGOT 24 U/L (5-34)
[2019-04-17 15:30] LABS: ALT/SGPT 22 U/L (0-55)
[2019-04-17 15:36] LABS: TROPONIN-I < 0.03 ng/mL (<0.030)
[2019-04-17 16:31] LABS: URINE APPEARANCE HAZY; URINE BILIRUBIN NEGATIVE (NEGATIVE); URINE BLOOD TRACE (NEGATIVE); URINE COLOR YELLOW; URINE GLUCOSE NEGATIVE (NEGATIVE); URINE KETONE NEGATIVE (NEGATIVE); URINE LEUKOCYTE ESTERASE 2+ (NEGATIVE); URINE NITRATE NEGATIVE (NEGATIVE); URINE PROTEIN(semi-quant) 1+ mg/dL (NEGATIVE); URINE UROBILINOGEN NORMAL (NORMAL); URINE WBC 31-50 /hpf (0-3)
[2019-04-17 17:32] LABS: PARTIAL THROMBOPLASTIN TIME 26.4 SECONDS (21.0-32.0); PROTHROMBIN TIME 20.1 SECONDS (9.0-12.0)
[2019-04-17 18:37] VITALS: BP 121/49
== END 2019-04-17 19:12 | disposition short-term general hospital (02) ==
LOC: ED 13:56
PROVIDERS: Nurse Practitioner
DX: I95.1 Orthostatic hypotension (principal); I25.10 Atherosclerotic heart disease of native coronary artery without angina pectoris; I11.0 Hypertensive heart disease with heart failure; I50.9 Heart failure, unspecified; N17.9 Acute kidney failure, unspecified; J44.9 Chronic obstructive pulmonary disease, unspecified; I48.91 Unspecified atrial fibrillation; Z79.01 Long term (current) use of anticoagulants; Z95.5 Presence of coronary angioplasty implant and graft; Z79.82 Long term (current) use of aspirin
CPT/HCPCS: J3480; J7030

== ENCOUNTER → 2019-06-22 | Outpatient (CLI) | payer MEDICARE, BC ==
[2019-06-22 16:23] LABS: POTASSIUM 4.5 mmol/L (3.5-5.1)
[2019-06-22 16:24] LABS: CALCIUM 9.3 mg/dL (8.3-10.5)
== END ==
LOC: LAB 15:59
DX: R60.0 Localized edema (principal); E87.6 Hypokalemia; Z79.899 Other long term (current) drug therapy

== ENCOUNTER 2019-07-20 11:00 | Outpatient (RCR) | payer MEDICARE, BC | END 2019-09-27 | disposition still patient (30) | LOC: CARDREHAB | DX: Z48.812 Encounter for surgical aftercare following surgery on the circulatory system (principal); Z95.2 Presence of prosthetic heart valve ==

== ENCOUNTER → 2019-09-18 | Outpatient (CLI) | payer MEDICARE, BC ==
[2019-09-18 10:21] LABS: POTASSIUM 4.3 mmol/L (3.5-5.1)
[2019-09-18 10:22] LABS: CALCIUM 9.4 mg/dL (8.3-10.5)
== END ==
LOC: LAB 09:57
DX: Z79.899 Other long term (current) drug therapy (principal); I48.19 Other persistent atrial fibrillation; E87.6 Hypokalemia; R60.0 Localized edema

== ENCOUNTER → 2020-05-26 | Outpatient (CLI) | payer MEDICARE, BC ==
[2020-05-26 13:57] LABS: POTASSIUM 4.4 mmol/L (3.5-5.1)
[2020-05-26 13:59] LABS: CALCIUM 9.1 mg/dL (8.3-10.5)
== END ==
LOC: LAB 13:32
PROVIDERS: Internal Medicine Clinical Cardiac Electrophysiology
DX: I34.0 Nonrheumatic mitral (valve) insufficiency (principal); I25.10 Atherosclerotic heart disease of native coronary artery without angina pectoris; I48.0 Paroxysmal atrial fibrillation

== ENCOUNTER → 2020-06-01 | Outpatient (CLI) | payer MEDICARE, BC ==
[2020-06-01 11:49] LABS: POTASSIUM 4.3 mmol/L (3.5-5.1)
[2020-06-01 11:50] LABS: CALCIUM 9.1 mg/dL (8.3-10.5)
== END ==
LOC: LAB 11:22
PROVIDERS: Internal Medicine Clinical Cardiac Electrophysiology
DX: I48.19 Other persistent atrial fibrillation (principal)

== ENCOUNTER 2020-07-21 14:13 | Emergency (ER) | payer MEDICARE, BC ==
[2020-07-21] MEDS ORDERED: FLUTICASONE-SA1 EAC3 IH (14:32)
[2020-07-21] MEDS ORDERED: ALDACTONE 25MG25 MG PO (14:32)
[2020-07-21] MEDS ORDERED: TAZTIA XT120 MG PO (14:33)
[2020-07-21 18:07] VITALS: BP 146/82
== END 2020-07-21 18:06 | disposition home or self-care (01) ==
LOC: ED 14:13
DX: S52.601A Unspecified fracture of lower end of right ulna, initial encounter for closed fracture (principal); S61.216A Laceration without foreign body of right little finger without damage to nail, initial encounter; I10 Essential (primary) hypertension; J44.9 Chronic obstructive pulmonary disease, unspecified; I11.0 Hypertensive heart disease with heart failure; Z95.9 Presence of cardiac and vascular implant and graft, unspecified; Z79.01 Long term (current) use of anticoagulants; Z79.82 Long term (current) use of aspirin; W01.0XXA Fall on same level from slipping, tripping and stumbling without subsequent striking against object, initial encounter; Y92.009 Unspecified place in unspecified non-institutional (private) residence as the place of occurrence of the external cause

== ENCOUNTER → 2020-11-30 | Day surgery (SDC) | payer MEDICARE, BC ==
[~2020-11-30] MED LIST changes: +FLUTICASONE-SA1 EAC3 IH; +TAZTIA XT120 MG PO
== END | disposition home or self-care (01) ==
LOC: MSO 09:44
DX: H25.813 Combined forms of age-related cataract, bilateral (principal); J44.9 Chronic obstructive pulmonary disease, unspecified; I50.9 Heart failure, unspecified; I48.91 Unspecified atrial fibrillation; I05.9 Rheumatic mitral valve disease, unspecified; Z79.899 Other long term (current) drug therapy; Z79.01 Long term (current) use of anticoagulants; Z87.891 Personal history of nicotine dependence; Z79.82 Long term (current) use of aspirin; Z88.3 Allergy status to other anti-infective agents; Z79.51 Long term (current) use of inhaled steroids
CPT/HCPCS: 00142; J0171; J2250; V2632

== ENCOUNTER → 2020-12-19 | Outpatient (CLI) | payer MEDICARE, BC ==
[2020-12-19 08:40] LABS: ALBUMIN 3.9 g/dL (3.4-4.8); POTASSIUM 4.4 mmol/L (3.5-5.1)
[2020-12-19 08:41] LABS: CALCIUM 9.5 mg/dL (8.3-10.5)
[2020-12-19 08:42] LABS: TOTAL PROTEIN 7.3 g/dL (6.2-8.1)
[2020-12-19 08:44] LABS: TOTAL BILIRUBIN 0.5 mg/dL (0.2-1.2)
== END ==
LOC: LAB 08:13
PROVIDERS: Family Medicine
DX: Z00.00 Encounter for general adult medical examination without abnormal findings (principal); Z86.79 Personal history of other diseases of the circulatory system

== ENCOUNTER → 2020-12-28 | Day surgery (SDC) | payer MEDICARE, BC | LOC: MSO 07:19 | DX: H25.811 Combined forms of age-related cataract, right eye (principal); J44.9 Chronic obstructive pulmonary disease, unspecified; I38 Endocarditis, valve unspecified; I50.9 Heart failure, unspecified; Z79.899 Other long term (current) drug therapy; Z79.01 Long term (current) use of anticoagulants; Z79.82 Long term (current) use of aspirin; Z87.891 Personal history of nicotine dependence | CPT/HCPCS: 00142; J0171; J2250; V2632 ==

== ENCOUNTER → 2021-06-26 | Outpatient (CLI) | payer MEDICARE, BC ==
[2021-06-26 12:47] LABS: BASO # 0.05 K/mm3 (0.02-0.10); EOS # 0.07 K/mm3 (0.04-0.40); EOS % 0.6 % (1.0-5.0); HEMATOCRIT 45.9 % (37.0-47.0); HEMOGLOBIN 14.9 g/dL (12.5-16.0); LYMPH# 3.88 K/mm3 (1.50-4.00); MEAN CELL VOLUME 87 fl (78-100); MEAN CORPUSCULAR HEMOGLOBIN 28 pg (27-31); MEAN CORPUSCULAR HGB CONC 33 g/dL (33-37); MEAN PLATELET VOLUME 9.9 fl (7.4-10.4); MONO # 0.68 K/mm3 (0.20-0.80); NEU # 6.45 K/mm3 (1.40-6.50); PLATELET COUNT 321 K/mm3 (130-400); RED BLOOD COUNT 5.25 M/mm3 (4.10-5.30); RED CELL DISTRIBUTION WIDTH 14.3 % (11.5-14.5); WHITE BLOOD COUNT 11.2 K/mm3 (4.8-10.8)
[2021-06-26 12:48] LABS: ALBUMIN 4.4 g/dL (3.4-4.8); POTASSIUM 4.5 mmol/L (3.5-5.1)
[2021-06-26 12:51] LABS: TOTAL PROTEIN 7.7 g/dL (6.2-8.1)
[2021-06-26 12:53] LABS: TOTAL BILIRUBIN 0.5 mg/dL (0.2-1.2)
[2021-06-26 12:57] LABS: MAGNESIUM 1.95 mg/dL (1.60-2.60)
== END ==
LOC: LAB 11:56
PROVIDERS: Internal Medicine
DX: J43.2 Centrilobular emphysema (principal); K90.9 Intestinal malabsorption, unspecified; I10 Essential (primary) hypertension; I48.19 Other persistent atrial fibrillation; I27.0 Primary pulmonary hypertension; M85.80 Other specified disorders of bone density and structure, unspecified site; I05.2 Rheumatic mitral stenosis with insufficiency

== ENCOUNTER → 2021-07-04 | Outpatient (CLI) | payer MEDICARE, BC | LOC: MAMMO 10:45 | DX: M81.0 Age-related osteoporosis without current pathological fracture (principal); M85.80 Other specified disorders of bone density and structure, unspecified site ==

== ENCOUNTER 2021-07-28 10:46 | Emergency (ER) | payer MEDICARE, BC ==
[~2021-07-28] VITALS: Ht 157.5 cm; Wt 81.2 kg
[2021-07-28 11:10] LABS: BASO # 0.07 K/mm3 (0.02-0.10); EOS # 0.16 K/mm3 (0.04-0.40); EOS % 1.1 % (1.0-5.0); HEMATOCRIT 43.2 % (37.0-47.0); LYMPH# 7.59 K/mm3 (1.50-4.00); MEAN CELL VOLUME 88 fl (78-100); MEAN CORPUSCULAR HEMOGLOBIN 29 pg (27-31); MEAN CORPUSCULAR HGB CONC 32 g/dL (33-37); MEAN PLATELET VOLUME 9.4 fl (7.4-10.4); MONO # 0.85 K/mm3 (0.20-0.80); NEU # 5.65 K/mm3 (1.40-6.50); PLATELET COUNT 299 K/mm3 (130-400); RED BLOOD COUNT 4.91 M/mm3 (4.10-5.30); RED CELL DISTRIBUTION WIDTH 14.3 % (11.5-14.5); WHITE BLOOD COUNT 14.3 K/mm3 (4.8-10.8)
[2021-07-28 11:23] LABS: ALBUMIN 4.1 g/dL (3.4-4.8); POTASSIUM 3.8 mmol/L (3.5-5.1)
[2021-07-28 11:27] LABS: TOTAL BILIRUBIN 0.6 mg/dL (0.2-1.2)
[2021-07-28 12:19] LABS: LYMPHOCYTE 45 % (20-51); MONOCYTE 5 % (3-10); NEUTROPHILS 50 % (42-75)
[2021-07-28 13:46] VITALS: BP 127/66
[2021-07-28 14:00] LABS: URINE APPEARANCE CLEAR; URINE BILIRUBIN NEGATIVE (NEGATIVE); URINE BLOOD NEGATIVE (NEGATIVE); URINE COLOR YELLOW; URINE GLUCOSE NEGATIVE (NEGATIVE); URINE KETONE NEGATIVE (NEGATIVE); URINE LEUKOCYTE ESTERASE NEGATIVE (NEGATIVE); URINE NITRATE NEGATIVE (NEGATIVE); URINE PROTEIN(semi-quant) TRACE (NEGATIVE); URINE UROBILINOGEN NORMAL (NORMAL); URINE WBC 0-1 /hpf (0-3)
== END 2021-07-28 13:59 | disposition home or self-care (01) ==
LOC: ED 10:46
PROVIDERS: Nurse Practitioner
DX: S02.32XA Fracture of orbital floor, left side, initial encounter for closed fracture (principal); Z87.891 Personal history of nicotine dependence; Z20.822 Contact with and (suspected) exposure to COVID-19; W01.198A Fall on same level from slipping, tripping and stumbling with subsequent striking against other object, initial encounter

== ENCOUNTER → 2021-08-28 | Outpatient (CLI) | payer MEDICARE, BC | LOC: LAB 10:04 | DX: S02.30XA Fracture of orbital floor, unspecified side, initial encounter for closed fracture (principal); E53.8 Deficiency of other specified B group vitamins; E55.9 Vitamin D deficiency, unspecified; K90.9 Intestinal malabsorption, unspecified; M81.0 Age-related osteoporosis without current pathological fracture; J44.9 Chronic obstructive pulmonary disease, unspecified; I05.2 Rheumatic mitral stenosis with insufficiency; I48.19 Other persistent atrial fibrillation ==

== ENCOUNTER → 2022-01-25 | Outpatient (CLI) | payer MEDICARE, BC ==
[2022-01-25 11:05] LABS: BASO # 0.08 K/mm3 (0.02-0.10); EOS # 0.31 K/mm3 (0.04-0.40); HEMATOCRIT 45.4 % (37.0-47.0); HEMOGLOBIN 14.7 g/dL (12.5-16.0); LYMPH# 2.99 K/mm3 (1.50-4.00); MEAN CELL VOLUME 88 fl (78-100); MEAN CORPUSCULAR HEMOGLOBIN 28 pg (27-31); MEAN CORPUSCULAR HGB CONC 32 g/dL (33-37); MEAN PLATELET VOLUME 9.2 fl (7.4-10.4); MONO # 0.77 K/mm3 (0.20-0.80); NEU # 6.24 K/mm3 (1.40-6.50); PLATELET COUNT 324 K/mm3 (130-400); RED BLOOD COUNT 5.17 M/mm3 (4.10-5.30); RED CELL DISTRIBUTION WIDTH 14.2 % (11.5-14.5); WHITE BLOOD COUNT 10.4 K/mm3 (4.8-10.8)
[2022-01-25 11:09] LABS: ALBUMIN 4.2 g/dL (3.4-4.8); POTASSIUM 4.2 mmol/L (3.5-5.1)
[2022-01-25 11:10] LABS: CALCIUM 9.7 mg/dL (8.3-10.5)
[2022-01-25 11:11] LABS: TOTAL PROTEIN 7.5 g/dL (6.2-8.1)
[2022-01-25 11:13] LABS: TOTAL BILIRUBIN 0.5 mg/dL (0.2-1.2)
== END ==
LOC: LAB 10:46
PROVIDERS: Internal Medicine
DX: E53.8 Deficiency of other specified B group vitamins (principal); I48.19 Other persistent atrial fibrillation; I25.10 Atherosclerotic heart disease of native coronary artery without angina pectoris; E55.9 Vitamin D deficiency, unspecified; K90.9 Intestinal malabsorption, unspecified; M81.0 Age-related osteoporosis without current pathological fracture; J44.9 Chronic obstructive pulmonary disease, unspecified; I05.2 Rheumatic mitral stenosis with insufficiency

== ENCOUNTER → 2022-07-26 | Outpatient (CLI) | payer MEDICARE, BC ==
[2022-07-26 11:06] LABS: BASO # 0.03 K/mm3 (0.02-0.10); EOS # 0.09 K/mm3 (0.04-0.40); EOS % 0.9 % (1.0-5.0); HEMATOCRIT 46.5 % (37.0-47.0); HEMOGLOBIN 14.8 g/dL (12.5-16.0); LYMPH# 3.62 K/mm3 (1.50-4.00); MEAN CELL VOLUME 90 fl (78-100); MEAN CORPUSCULAR HEMOGLOBIN 29 pg (27-31); MEAN CORPUSCULAR HGB CONC 32 g/dL (33-37); MEAN PLATELET VOLUME 9.6 fl (7.4-10.4); MONO # 0.64 K/mm3 (0.20-0.80); NEU # 6.12 K/mm3 (1.40-6.50); PLATELET COUNT 303 K/mm3 (130-400); RED BLOOD COUNT 5.15 M/mm3 (4.10-5.30); WHITE BLOOD COUNT 10.5 K/mm3 (4.8-10.8)
[2022-07-26 11:09] LABS: ALBUMIN 4.3 g/dL (3.4-4.8)
[2022-07-26 11:10] LABS: POTASSIUM 5.2 mmol/L (3.5-5.1)
[2022-07-26 11:11] LABS: CALCIUM 10.3 mg/dL (8.3-10.5)
[2022-07-26 11:12] LABS: TOTAL PROTEIN 7.7 g/dL (6.2-8.1)
[2022-07-26 11:14] LABS: TOTAL BILIRUBIN 0.4 mg/dL (0.2-1.2)
[2022-07-26 11:18] LABS: MAGNESIUM 2.1 mg/dL (1.60-2.60)
== END ==
LOC: LAB 10:47
PROVIDERS: Internal Medicine
DX: Z00.00 Encounter for general adult medical examination without abnormal findings (principal); I27.0 Primary pulmonary hypertension; I48.19 Other persistent atrial fibrillation; K90.9 Intestinal malabsorption, unspecified; M85.80 Other specified disorders of bone density and structure, unspecified site; I05.2 Rheumatic mitral stenosis with insufficiency; J43.2 Centrilobular emphysema; M81.0 Age-related osteoporosis without current pathological fracture; Z86.79 Personal history of other diseases of the circulatory system

== ENCOUNTER → 2023-03-26 | Day surgery (SDC) | payer MEDICARE, BC | END | disposition home or self-care (01) | LOC: MSO 13:38 | DX: H26.492 Other secondary cataract, left eye (principal) ==

== ENCOUNTER → 2023-05-01 | Day surgery (SDC) | payer MEDICARE, BC | END | disposition home or self-care (01) | LOC: MSO 13:23 | DX: H26.491 Other secondary cataract, right eye (principal) ==

== ENCOUNTER → 2023-07-19 | Outpatient (CLI) | payer MEDICARE, BC ==
[~2023-07-19] VITALS: Ht 157.5 cm; Wt 82.3 kg
[~2023-07-19] MED LIST changes: +Denosumab 60 MG/ML SYRINGE SQ SCH; +LASIX 80MG TABL80 MG PO; +PROLIA60 MG/ML SC
[2023-07-19 11:28] VITALS: BP 135/69
[2023-07-19 12:11] LABS: BASO # 0.04 K/mm3 (0.02-0.10); EOS # 0.08 K/mm3 (0.04-0.40); EOS % 0.9 % (1.0-5.0); HEMATOCRIT 45.9 % (37.0-47.0); MEAN CELL VOLUME 89 fl (78-100); MEAN CORPUSCULAR HEMOGLOBIN 29 pg (27-31); MEAN CORPUSCULAR HGB CONC 33 g/dL (33-37); MEAN PLATELET VOLUME 9.3 fl (7.4-10.4); MONO # 0.57 K/mm3 (0.20-0.80); NEU # 5.42 K/mm3 (1.40-6.50); PLATELET COUNT 306 K/mm3 (130-400); RED BLOOD COUNT 5.17 M/mm3 (4.10-5.30); RED CELL DISTRIBUTION WIDTH 13.9 % (11.5-14.5); WHITE BLOOD COUNT 9.2 K/mm3 (4.8-10.8)
[2023-07-19 12:20] LABS: ALBUMIN 4.1 g/dL (3.4-4.8)
[2023-07-19 12:21] LABS: CALCIUM 10.2 mg/dL (8.3-10.5)
[2023-07-19 12:23] LABS: TOTAL PROTEIN 7.2 g/dL (6.2-8.1)
[2023-07-19 12:24] LABS: TOTAL BILIRUBIN 0.5 mg/dL (0.2-1.2)
[2023-07-19 12:29] LABS: MAGNESIUM 2.02 mg/dL (1.60-2.60)
== END ==
LOC: LAB 11:02 → AMSURD 11:02
PROVIDERS: Internal Medicine
DX: M81.0 Age-related osteoporosis without current pathological fracture (principal); I10 Essential (primary) hypertension; I25.10 Atherosclerotic heart disease of native coronary artery without angina pectoris
CPT/HCPCS: J0897

== ENCOUNTER 2023-09-11 18:00 | Inpatient (IN) | payer MEDICARE, BC ==
[~2023-09-11 18:00] MED LIST changes: -Denosumab 60 MG/ML SYRINGE SQ SCH; -TAZTIA XT120 MG PO; +TIAZAC180 MG PO
--- NOTE | 2023-09-11 18:00 | NUR ---
Pt admitted acute from observation status per provider, Dr. Daniels.
[2023-09-11] MEDS ORDERED: dilTIAZem CD 180 MG CAP PO ONE (21:07)
[2023-09-11] MEDS ORDERED: Levalbuterol Neb Soln 1.25 MG/3 ML UD IH ONE (21:07)
[2023-09-11] MEDS ORDERED: Doxycycline Monohydrate 100 MG CAP PO ONE (21:10)
[2023-09-12] MEDS ORDERED: Albuterol/Ipratropium 3 MG-0.5 MG/3 ML Neb Soln IH SCH (00:35)
[2023-09-12] MEDS ORDERED: methylPREDNISolone Sod Succ 125 MG/2 ML VIAL IV SCH (00:35)
[2023-09-12] MEDS ORDERED: Ezetimibe 10 MG TAB PO SCH (08:36)
[2023-09-12] MEDS ORDERED: Levalbuterol Neb Soln 1.25 MG/3 ML UD IH SCH (08:36)
[2023-09-12] MEDS ORDERED: Spironolactone 25 MG TAB PO SCH (08:36)
[2023-09-12] MEDS ORDERED: cefTRIAXone 1 G in Water For Injection,Sterile 10 ML IV SCH (08:37)
[2023-09-12] MEDS ORDERED: Doxycycline Monohydrate 100 MG CAP PO SCH (08:37)
[2023-09-12] MEDS ORDERED: Furosemide 40 MG/4 ML VIAL IV SCH (08:38)
[2023-09-12] MEDS ORDERED: dilTIAZem CD 180 MG CAP PO SCH (10:45)
--- NOTE | 2023-09-12 20:14 | NUR ---
Due to downtime, documentation on EMR completed post care by Aye Yousif RN; refer to scanned downtime paper documentation for full care documentation.
[2023-09-13 20:17] LABS: HEMATOCRIT 40.2 % (37.0-47.0); HEMOGLOBIN 13.2 g/dL (12.5-16.0); MEAN CELL VOLUME 88 fl (78-100); MEAN CORPUSCULAR HEMOGLOBIN 29 pg (27-31); MEAN CORPUSCULAR HGB CONC 33 g/dL (33-37); MEAN PLATELET VOLUME 9.5 fl (7.4-10.4); PLATELET COUNT 324 K/mm3 (130-400); RED BLOOD COUNT 4.57 M/mm3 (4.10-5.30); RED CELL DISTRIBUTION WIDTH 14.4 % (11.5-14.5)
[2023-09-13 20:18] LABS: BAND 1 % (0-10); LYMPHOCYTE 2 % (20-51); MONOCYTE 1 % (3-10); NEUTROPHILS 96 % (42-75); WHITE BLOOD COUNT 22.4 K/mm3 (4.8-10.8)
[2023-09-13 20:19] LABS: ALBUMIN 3.6 g/dL (3.4-4.8)
[2023-09-13 20:20] LABS: CALCIUM 8.9 mg/dL (8.3-10.5); TOTAL BILIRUBIN 0.3 mg/dL (0.2-1.2); TOTAL PROTEIN 6.4 g/dL (6.2-8.1)
== END 2023-09-12 09:50 | disposition short-term general hospital (02) | DRG 193 ==
LOC: MED/SURG 18:00
PROVIDERS: ADMIT Family Medicine
DX: J18.9 Pneumonia, unspecified organism (principal); I50.23 Acute on chronic systolic (congestive) heart failure; J44.1 Chronic obstructive pulmonary disease with (acute) exacerbation; N17.9 Acute kidney failure, unspecified; I48.19 Other persistent atrial fibrillation; I11.0 Hypertensive heart disease with heart failure; D72.829 Elevated white blood cell count, unspecified; I25.10 Atherosclerotic heart disease of native coronary artery without angina pectoris; Z79.01 Long term (current) use of anticoagulants; E55.9 Vitamin D deficiency, unspecified; Z79.82 Long term (current) use of aspirin; E66.9 Obesity, unspecified
CPT/HCPCS: J0696; J1940; J2919

== ENCOUNTER 2024-06-15 09:34 | Emergency (ER) | payer MEDICARE, BC ==
[~2024-06-15] VITALS: Ht 157.5 cm; Wt 78.3 kg
[~2024-06-15 09:34] MED LIST changes: +COLACE100 M1 PO; +ROSUVASTATIN CA20 MG PO
[2024-06-15 09:58] LABS: BASO # 0.02 K/mm3 (0.02-0.10); EOS # 0.07 K/mm3 (0.04-0.40); EOS % 0.9 % (1.0-5.0); HEMATOCRIT 42.8 % (37.0-47.0); HEMOGLOBIN 13.8 g/dL (12.5-16.0); LYMPH# 2.74 K/mm3 (1.50-4.00); MEAN CELL VOLUME 87 fl (78-100); MEAN CORPUSCULAR HEMOGLOBIN 28 pg (27-31); MEAN CORPUSCULAR HGB CONC 32 g/dL (33-37); MEAN PLATELET VOLUME 9.5 fl (7.4-10.4); MONO # 0.59 K/mm3 (0.20-0.80); NEU # 4.11 K/mm3 (1.40-6.50); PLATELET COUNT 239 K/mm3 (130-400); RED CELL DISTRIBUTION WIDTH 14.6 % (11.5-14.5); WHITE BLOOD COUNT 7.5 K/mm3 (4.8-10.8)
[2024-06-15] MEDS ORDERED: TOPCARE ASPIRIN81 M1 PO (10:09)
[2024-06-15 10:12] LABS: ALBUMIN 3.8 g/dL (3.4-4.8)
[2024-06-15 10:13] LABS: CALCIUM 9.6 mg/dL (8.3-10.5)
[2024-06-15 10:14] LABS: TOTAL PROTEIN 6.7 g/dL (6.2-8.1)
[2024-06-15 10:16] LABS: TOTAL BILIRUBIN 0.5 mg/dL (0.2-1.2)
[2024-06-15] MEDS ORDERED: Metoprolol Tartrate 1 MG/ML 5 ML VIAL IV SCH (10:30)
[2024-06-15 10:31] LABS: TROPONIN-I 0.077 ng/mL (0.00-0.033)
[2024-06-15] MEDS ORDERED: dilTIAZem 25 MG/5 ML VIAL IV ONE (11:00)
[2024-06-15 21:29] VITALS: BP 96/73
== END 2024-06-15 21:30 | disposition short-term general hospital (02) ==
LOC: ED 09:34
PROVIDERS: Physician Assistant
DX: I48.92 Unspecified atrial flutter (principal); I50.9 Heart failure, unspecified; I48.0 Paroxysmal atrial fibrillation; Z95.1 Presence of aortocoronary bypass graft; Z79.899 Other long term (current) drug therapy

== ENCOUNTER → 2024-07-02 | Outpatient (CLI) | payer MEDICARE, BC ==
[~2024-07-02] MED LIST changes: +TOPCARE ASPIRIN81 M1 PO
[2024-07-02 16:35] LABS: PROTHROMBIN TIME 57.2 SECONDS (9.0-12.0)
== END ==
LOC: LAB 15:25
PROVIDERS: Internal Medicine
DX: I48.19 Other persistent atrial fibrillation (principal)

== ENCOUNTER → 2024-07-20 | Outpatient (CLI) | payer MEDICARE, BC ==
[2024-07-20 11:48] LABS: BASO # 0.02 K/mm3 (0.02-0.10); EOS % 1.2 % (1.0-5.0); HEMATOCRIT 42.5 % (37.0-47.0); HEMOGLOBIN 13.4 g/dL (12.5-16.0); LYMPH# 2.77 K/mm3 (1.50-4.00); MEAN CELL VOLUME 89 fl (78-100); MEAN CORPUSCULAR HEMOGLOBIN 28 pg (27-31); MEAN CORPUSCULAR HGB CONC 32 g/dL (33-37); MEAN PLATELET VOLUME 9.5 fl (7.4-10.4); MONO # 0.56 K/mm3 (0.20-0.80); NEU # 4.61 K/mm3 (1.40-6.50); PLATELET COUNT 252 K/mm3 (130-400); RED BLOOD COUNT 4.79 M/mm3 (4.10-5.30); RED CELL DISTRIBUTION WIDTH 14.9 % (11.5-14.5); WHITE BLOOD COUNT 8.1 K/mm3 (4.8-10.8)
[2024-07-20 11:54] LABS: ALBUMIN 3.9 g/dL (3.4-4.8)
[2024-07-20 11:56] LABS: CALCIUM 9.1 mg/dL (8.3-10.5)
[2024-07-20 11:57] LABS: TOTAL PROTEIN 6.8 g/dL (6.2-8.1)
[2024-07-20 11:59] LABS: TOTAL BILIRUBIN 0.5 mg/dL (0.2-1.2)
[2024-07-20 12:01] LABS: PROTHROMBIN TIME 10.1 SECONDS (9.0-12.0)
[2024-07-20 12:04] LABS: MAGNESIUM 1.92 mg/dL (1.60-2.60)
== END ==
LOC: LAB 11:28
PROVIDERS: Internal Medicine
DX: I48.19 Other persistent atrial fibrillation (principal); R73.9 Hyperglycemia, unspecified

== ENCOUNTER → 2024-07-27 | Outpatient (CLI) | payer MEDICARE, BC | LOC: LAB 10:18 | PROVIDERS: Internal Medicine | DX: I48.19 Other persistent atrial fibrillation (principal) ==

== ENCOUNTER → 2024-08-10 | Outpatient (CLI) | payer MEDICARE, BC ==
[2024-08-10 10:10] LABS: PROTHROMBIN TIME 13.3 SECONDS (9.0-12.0)
== END ==
LOC: LAB 09:37
PROVIDERS: Internal Medicine
DX: I48.19 Other persistent atrial fibrillation (principal)